=== PATIENT | female | born 1965 | race African-American/Black ===

== ENCOUNTER 2022-03-02 10:54 | Emergency (ER) | payer MEDICARE ==
[2022-03-02 12:10] LABS: Hemoglobin 9.6 g/dL (12.0-16.0); Mean Corpuscular Hemoglobin 25.7 pg (27.0-31.0); Mean Corpuscular Volume 85.6 fl (78.0-98.0); Mean Platelet Volume 8.6 fL (7.4-10.4); Platelet Count 195 10x3/uL (130-400); RBC Distribution Width 16.5 % (11.5-14.5); Red Blood Cell (RBC) Count 3.75 mill/uL (4.20-5.40); White Blood Cell (WBC) Count 3.6 10x3/uL (4.8-10.8)
[2022-03-02 12:20] LABS: Anisocytosis SLIGHT = 6-15 cells (100X) (0-5/hpf); Band 1 % (5-11); Eosinophils 2 % (0-10); Lymphocytes 15 % (21-51); MDiff Complete? YES; Manual Diff?? YES; Monocytes 19 % (0-10); Neutrophil 63 % (42-75); Platelet Morphology Comment Appears Adequate
[2022-03-02 12:23] LABS: ALT (SGPT) 21 U/L (8-55); AST (SGOT) 28 U/L (5-34); Albumin 3.7 g/dL (3.5-5.0); Alkaline Phosphatase 66 U/L (40-110); Anion Gap 16 mmol/L (10-20); BUN (Urea Nitrogen) 15 mg/dL (9.8-20.1); Bilirubin, Total 0.4 mg/dL (0.2-1.2); Calc. Creatinine Clearance 0 mL/min (70-130); Calcium 9.7 mg/dL (7.8-10.44); Carbon Dioxide 34 mmol/L (22-29); Chloride 96 mmol/L (98-107); Estimated GFR 83; Globulin 2.8 g/dL (2.4-3.5); Glucose 116 mg/dL (70-105); Lipase 20 U/L (8-78); Protein, Total 6.5 g/dL (6.0-8.3); Sodium 142 mmol/L (136-145)
[2022-03-02 12:43] LABS: CKMB 2.2 ng/mL (0-6.6)
[2022-03-02] MEDS ORDERED: Furosemide 20 MG/2 ML VIAL ONE (14:57)
[2022-03-02 16:11] LABS: SARS-CoV-2 NAA Rapid Test Not Detected (NotDetected)
[2022-03-02 17:21] LABS: Troponin I 0.037 ng/mL (< 0.028)
== END 2022-03-03 14:48 | disposition short-term general hospital (02) ==
LOC: MADERS 10:54
DX: I11.0 Hypertensive heart disease with heart failure (principal); I50.9 Heart failure, unspecified; D64.9 Anemia, unspecified; R77.8 Other specified abnormalities of plasma proteins; Z20.822 Contact with and (suspected) exposure to COVID-19; E03.9 Hypothyroidism, unspecified; K21.9 Gastro-esophageal reflux disease without esophagitis; Z79.899 Other long term (current) drug therapy
CPT/HCPCS: 71045; 80053; 82553; 83690; 83880; 84484 ×2; 85025; 85379; 87804 ×2; 93005; U0002; 96374; J1940